=== PATIENT | female | born 1980 | race African-American/Black ===

== ENCOUNTER → 2019-03-07 | Day surgery (SDC) | payer BC | LOC: FASU 08:40 ==

== ENCOUNTER 2019-10-10 10:35 | Day surgery (SDC) | payer BC ==
[2019-10-07 10:29] VITALS: BMI 29.9
[2019-10-10] MEDS ORDERED: LIDOCAINE HCL 1%, 10 MG/ML (20ML VIAL) ONE (11:00)
[2019-10-10] MEDS ORDERED: MIDAZOLAM HCL 2 MG/2 ML SINGLE DOSE VIAL ONE (12:02)
[2019-10-10] MEDS ORDERED: PROPOFOL 20 ML ONE ×7 (12:04→12:42)
[2019-10-10] MEDS ORDERED: LACTATED RINGERS SOLUTION 1,000 ML IV SCH (13:15)
[2019-10-10] MEDS ORDERED: oxyCODONE HCL 5 MG TABLET ONE (14:00)
[2019-10-10] MEDS ORDERED: ACETAMINOPHEN 325 MG TABLET (FP) ONE (14:52)
--- NOTE | 2019-10-10 16:03 | OP ---
DATE OF OPERATION: 10/10/2019 PREOPERATIVE DIAGNOSIS: Right carpal tunnel syndrome to the right wrist. POSTOPERATIVE DIAGNOSIS: Right carpal tunnel syndrome to the right wrist. PROCEDURES PERFORMED: 1. Right carpal tunnel release. 2. Epineurolysis. 3. Release of antebrachial fascia. 4. Plastic surgical closure to the right wrist. SURGEON: Antwon Sanders MD TELEMARKETER: YANIRA Cho ANESTHESIA: Efren Melgar MD, general anesthesia was performed. DESCRIPTION OF PROCEDURE: The procedure consisted of the patient being brought into the operating room, gently transferred from the stretcher to the OR table with all bony prominences well padded. The right wrist and hand were prepared and draped in a sterile fashion. Patient was given intravenous antibiotics and copious irrigation throughout the procedure to minimize risk of infection. A complete risk, benefit, alternative discussion was conducted with the patient, which was inclusive of, but not limited to, infection, bleeding, , paralysis, increased pain, need for repeat surgery. Patient asked questions, understood the procedure, and desired to proceed with surgical treatment. Following sterile preparation and draping of the right wrist and hand, bony landmarks were identified, and appropriate time-out was conducted, which was inclusive of, but not limited to, type of surgery, site of surgery, anesthesiologist, and surgeon. The hand was exsanguinated using a rubber Esmarch bandage and the tourniquet inflated to 250 mmHg. The hand was examined. Bony landmarks were identified, and a curvilinear incision approximately 1-1/4 inches in length was made in line with the palmar crease to the level of the wrist crease. Dissection was carried down gently through the soft tissues with great care taken to protect neurovascular structures. The transverse carpal ligament was identified , and the antebrachial fascia was identified. A gentle dissection through the antebrachial fascia allowed visualization of the median nerve, and there was noted to be constriction at the antebrachial fascia, and this was released proximally. The transverse carpal ligament was identified, and a small mosquito hemostat was placed deep to the transverse carpal ligament to protect the median nerve, and sharp dissection was used using a new scalpel, a 15 blade, and this was used to transect under direct protection and direct visualization of the transverse carpal ligament. Dissection was carried distally to the palmar fascia, which was also creating constriction. The median nerve was visualized. There was noted to be a marked wasting of the median nerve at the level of the transverse carpal ligament. The epineurium was constricting the median nerve, and there was noted to be narrowing at that level. General dissection and elevation with epineurolysis was performed, and there was noted to be a visualized blood flow returning to the median nerve with release. The wounds were then copiously irrigated with sterile saline irrigant then closed with a plastic surgical closure using 4-0 Prolene to the skin of the palm. Tourniquet had been deflated prior to closure with copious irrigation to the surgical field. A moistened finger was used to palpate the carpal tunnel to ensure no masses were present in that location. Following wound closure, a dressing of Xeroform , 4 x 4's, sterile Webril, and Mukesh bandages were then used with a stockinette for elevation. Dimitri Maki was critical for assisting during surgery. He provided critical support and safety in surgical treatment. The patient had tourniquet released after approximately 25 minutes of tourniquet time. The patient was then gently transferred from the operating room to the recovery room in excellent condition. Patient tolerated the procedure well. There were no intraoperative complications. ANTWON SANDERS M.D. [id number]
[2019-10-10 16:06] VITALS: BP 103/70; PULSE 18; TEMP 97.9
== END 2019-10-10 15:50 | disposition home or self-care (01) ==
LOC: FASU 10:35
PROVIDERS: ATTEND Orthopaedic Surgery
PROC: 01N50ZZ Release Median Nerve, Open Approach (ICD-10-PCS; principal; 2019-10-10 12:20)
DX: G56.01 Carpal tunnel syndrome, right upper limb (principal)
CPT/HCPCS: 84703; 94760

== ENCOUNTER 2022-05-19 09:18 | Day surgery (SDC) | payer OTHER, BC ==
[2022-05-17 17:47] VITALS: BMI 31.2
[2022-05-19] MEDS ORDERED: MORPHINE SULFATE 10 MG/1 ML *VIAL ONE (09:41)
[2022-05-19] MEDS ORDERED: BUPIVACAINE HCL/PF 0.5% (5MG/ML) 10 ML VIAL ONE (09:42)
[2022-05-19] MEDS ORDERED: MIDAZOLAM HCL 2 MG/2 ML SINGLE DOSE VIAL ONE (11:03)
[2022-05-19] MEDS ORDERED: LIDOCAINE HCL 2% 100 MG/5 ML DISP.SYRIN ONE (11:03)
[2022-05-19] MEDS ORDERED: PROPOFOL 20 ML ONE (11:03)
[2022-05-19] MEDS ORDERED: ceFAZolin SODIUM 1 GM VIAL ONE (11:28)
[2022-05-19] MEDS ORDERED: DEXAMETHASONE SOD PHOSPHATE 4 MG/1 ML VIAL ONE (11:28)
[2022-05-19] MEDS ORDERED: FENTANYL CITRATE/PF 50 MCG/ML VIAL ONE (12:29)
[2022-05-19] MEDS ORDERED: ONDANSETRON 4 MG/2 ML VIAL IVPUSH PRN (12:45)
[2022-05-19] MEDS ORDERED: oxyCODONE HCL 5 MG TABLET PO PRN (12:45)
[2022-05-19] MEDS ORDERED: LACTATED RINGERS SOLUTION 1,000 ML IV SCH (12:45)
[2022-05-19 13:21] VITALS: RESP 16; TEMP 98
[2022-05-19 13:24] VITALS: BP 109/61; PULSE 62
== END 2022-05-19 13:55 | disposition home or self-care (01) ==
LOC: FASU 09:18
PROVIDERS: ATTEND Orthopaedic Surgery
PROC: 0QBH4ZZ Excision of Left Tibia, Percutaneous Endoscopic Approach (ICD-10-PCS; 2022-05-19)
PROC: 0SSGXZZ Reposition Left Ankle Joint, External Approach (ICD-10-PCS; 2022-05-19)
PROC: 0SBG4ZZ Excision of Left Ankle Joint, Percutaneous Endoscopic Approach (ICD-10-PCS; principal; 2022-05-19 11:49)
DX: M25.672 Stiffness of left ankle, not elsewhere classified (principal); M93.272 Osteochondritis dissecans, left ankle and joints of left foot; M94.272 Chondromalacia, left ankle and joints of left foot; M67.272 Synovial hypertrophy, not elsewhere classified, left ankle and foot; M25.871 Other specified joint disorders, right ankle and foot
CPT/HCPCS: 84703; 94760